=== PATIENT | female | born 1995 | race American Indian/Alaskan Native ===

== ENCOUNTER 2017-04-15 13:25 | Day surgery (SDC) | payer MEDICAID ==
[2017-04-15] VITALS (9 sets, daily range): BP systolic 111–115; BP diastolic 40–70
[~2017-04-15] VITALS: Ht 154.9 cm; Wt 85.3 kg
[~2017-04-15 13:25] MED LIST: ONDA4TAB6 PO
[2017-04-15] MEDS ORDERED: cefazolin/dext.iso 2gm/50ml 50 ML IV ONE (13:30)
[2017-04-15] MEDS ORDERED: ringers solution, lacted 1,000 ML IV SCH ×2 (13:30→15:36)
[2017-04-15] MEDS ORDERED: famotidine 20mg tablet PO ONE (13:30)
[2017-04-15] MEDS ORDERED: ceFAZolin 1000mg inj ONE (13:55)
[2017-04-15] MEDS ORDERED: bacitracin 15gm ointment TP ONE (13:56)
[2017-04-15] MEDS ORDERED: BUPIVAcaine/PF 2.5 mg/ml (0.25%) 30ml vial ONE (13:56)
[2017-04-15 14:15] LABS: BASOPHILS % (AUTO) 0.3 % (0-1); EOSINOPHILS # (AUTO) 0.3 X10'3 (0-0.9); EOSINOPHILS % (AUTO) 3.8 % (0-6); HEMATOCRIT 40.5 % (35.0-45.0); HEMOGLOBIN 13.9 g/dl (12.0-16.0); LYMPHOCYTES # (AUTO) 2.5 X10'3 (1.1-4.8); MEAN CORPUSCULAR HEMOGLOBIN 31.3 PG (27.0-31.0); MEAN CORPUSCULAR HGB CONC 34.4 % (33.0-36.5); MEAN PLATELET VOLUME 8.8 FL (7.4-10.4); MONOCYTES # (AUTO) 0.5 X10'3 (0-0.9); MONOCYTES % (AUTO) 6.1 % (2-12); NEUTROPHILS # (AUTO) 4.9 X10'3 (1.8-7.7); NEUTROPHILS % (AUTO) 59.8 % (42-75); PLATELET COUNT 339 X10'3 (140-440); RED BLOOD COUNT 4.45 X10'6 (4.20-5.60); RED CELL DISTRIBUTION WIDTH 15.4 % (11.5-14.5); WHITE BLOOD COUNT 8.2 X10'3 (4.5-11.0)
[2017-04-15] MEDS ORDERED: NO HOME MEDS (14:19)
[2017-04-15 14:24] LABS: HCG SERUM QL NEGATIVE
[2017-04-15] MEDS ORDERED: sevoflurane 250ml liquid IH ONE (14:30)
[2017-04-15] MEDS ORDERED: cloNIDine hcl/PF 100mcg/ml inj ONE (14:33)
[2017-04-15] MEDS ORDERED: ROPIVAcaine 0.5% (5mg/ml) 30ml vial ONE (14:34)
[2017-04-15] MEDS ORDERED: midazolam 2 mg/2 ml injection ONE (14:37)
[2017-04-15] MEDS ORDERED: propofol inj 20 ML IV ONE (14:37)
[2017-04-15] MEDS ORDERED: fentaNYL/PF 50MCG/1 ML 2ML syringe ONE (14:37)
[2017-04-15] MEDS ORDERED: proCHLORperazine 10 MG/2 ml inj IV PRN (15:40)
[2017-04-15] MEDS ORDERED: ondansetron/PF 4mg/2ml inj IV PRN (15:40)
[2017-04-15] MEDS ORDERED: morphine 2 MG/ML inj. syringe IV PRN ×2 (15:40)
[2017-04-15] MEDS ORDERED: meperidine/PF 50mg/ml syringe IV PRN ×3 (15:40)
== END 2017-04-15 17:40 | disposition home or self-care (01) ==
LOC: PAS 13:25
PROVIDERS: ATTEND Orthopaedic Surgery
DX: S52.552A Other extraarticular fracture of lower end of left radius, initial encounter for closed fracture (principal); Z98.890 Other specified postprocedural states; X58.XXXA Exposure to other specified factors, initial encounter; Y93.89 Activity, other specified; Y92.9 Unspecified place or not applicable; Y99.8 Other external cause status
CPT/HCPCS: 25607; 36415; 84703; 85025; A4565; A6449; C1713; J0690; J0735; J2175; J2250; J2704; J2795; J3010; J7120; A7000; J3490